=== PATIENT | female | born 1950 | race Caucasian/White ===

== ENCOUNTER 2023-04-14 16:49 | Emergency (ER) | payer SELFPAY ==
[2023-04-14 16:53] VITALS: BP 166/114
[2023-04-14 17:26] LABS: % Basophils 0.5 % (0-2); % Eosinophils 1.3 % (0-6); % Immature Granulocytes 0.5 % (0-0.5); % Lymphocytes 11.8 % (20.5-51.1); % Monocytes 7.4 % (1.7-9.3); % Neutrophils 78.5 % (42.2-75.2); Absolute Eosinophils 0.1 10^3/uL (0-0.7); Absolute Lymphocytes 0.8 10^3/uL (1.2-3.4); Absolute Monocytes 0.5 10^3/uL (0.1-0.6); Hematocrit 35.2 % (37.0-47.0); Hemoglobin 11.5 g/dL (12.0-16.0); Mean Corp Hgb Conc. 32.7 g/dL (33.0-37.0); Mean Corpuscular Hgb 24.4 pg (27.0-31.0); Mean Corpuscular Volume 74.7 fL (81.0-99.0); Mean Platelet Volume 9.6 fL (7.4-10.4); Nucleated Red Blood Cells % 0 %; Platelet Count 267 10^3/uL (130-400); Red Blood Cell Count 4.71 10^6/uL (4.20-5.40); Red Cell Dist. Width 14.1 % (11.5-14.5); White Blood Cell Count 6.4 10^3/uL (4.8-10.8)
[2023-04-14 17:54] LABS: ALT (SGPT) 65 U/L (0-35); AST (SGOT) 55 U/L (14-36); Albumin 4.4 g/dl (3.5-5.0); Alkaline Phosphatase 76 U/L (38-126); Blood Urea Nitrogen 19 mg/dl (7-17); Calcium 9.2 mg/dl (8.4-10.2); Carbon Dioxide 24 mmol/L (22-30); Chloride 106 mmol/L (98-107); Glucose 85 mg/dl (70-99); Potassium 3.8 mmol/L (3.5-5.1); Sodium 135 mmol/L (135-145); Total Bilirubin 0.5 mg/dl (0.2-1.3); Total Protein 6.7 g/dl (6.3-8.2); eGFR > 60.00
[2023-04-14 19:45] VITALS: BP 171/98
[2023-04-14 19:54] VITALS: BMI 19.0
[2023-04-14 20:00] VITALS: BP 168/96
--- NOTE | 2023-04-14 20:38 | ED.GENMED ---
History of Present Illness
General
Chief Complaint: Change in Mental Status
Source: patient
Exam Limitations: none
Time Seen by Provider: 04/14/23 20:10
Nursing documentation reviewed up to this point in time: agreed with
Travel History
Have you had any contact with someone who has COVID-19?: No
Do you have any symptoms of coronavirus? Fever > 100 degrees, chills, cough, shortness of breath, sore throat, loss of taste or smell, muscle aches, or headache?: No
History of Present Illness
History of Present Illness:
The patient is a 72-year-old female who reports that she feels confused. Patient reports that she always feels confused but worse in the last 2 days. She reports that she has owned [place] home [place] for 35 years and is now trying to sell
it because she is not able to afford taxes. She reports that her real estate lawyer is angry with her because she can get herself together to clean up the house. She reports that a man about 20 years younger than her knocked on her door promising
to help her with construction work, but instead has been living with her and not paying rent. She reports that the police are behind this man and they are all trying to scam her. The patient denies headache, fever and cough. She denies drugs and
alcohol. She reports that she may have missed her medication for the last 2 days. She denies suicidal and homicidal thoughts. The patient reports that he is not working in her home properly because she believes that this man cut holes in the
battery to her thermostat. She reports she is hungry because she is unable to get food easily.
Past History
Past History
ED Past Medical History: Fibromyalgia and Psychiatric
ED Past Surgical History: Orthopedic (Right wrist surgery) and Other (Right inguinal hernia repair)
Social History
Tobacco: Non-smoker
Alcohol: None
Drug: None
Personal: Single
Living: other (' Lives with a squatter')
Employment: Other
Family History
Family History: Other
Review of Systems
Review of Systems
Allergies reviewed?: Yes
All Other Systems: ROS reviewed and negative except as documented in HPI and ROS
Constitutional: Reports fatigue
EENT: Reports no symptoms
Respiratory: Reports no symptoms
Cardiac: Reports no symptoms
ABD/GI: Reports no symptoms
: Reports no symptoms
Musculoskeletal: Reports no symptoms
Skin: Reports no symptoms
Neurological: Reports no symptoms
Endocrine: Reports no symptoms
Hematologic/Lymphatic: Reports no symptoms
Psychiatric: Reports anxiety
Phy Exam
Physical Exam
Physical Exam:
Physical Exam
General: no apparent distress, frail. Gets agitated at times but then calms down. Frequently cursing
Neck: supple. no meningeal signs. normal psoterior pharynx
Heart: s1/s2 regular rate and rhythm, no murmur. equal radial pulses.
Lungs: no acute respiratory distress. clear bilaterally
Abdomen: normal bowel sounds. not tender. no CVAT
Neuro: alert and orientedx3. no focal neurological deficits
Skin: no rash
Psychiatric: well kept. interactive and cooperative
Extremities: no edema. no calf tenderness. negative homans. good distal pulses
Course
Orders/Labs/Results
Orders:
Orders
04/14/23 17:05
Alcohol Urgent
Complete Blood Count/With Diff Urgent
Comprehensive Metabolic Panel Urgent
04/14/23 19:31
ECG [Electrocardiogram (*1)] Urgent
Reason for Study: Hypertension, Benign
04/14/23 19:32
EKG- Treatment ONCE
04/14/23 20:37
Crisis Consult Urgent
Reason for Consult: pyscotic, disorganized, paranoid
04/14/23 20:43
Add On- LAB Urgent
Tests Added?: alcohol
04/14/23 20:50
COVID-19 Antigen Urgent
Source: Nasal Swab
Abnormal Lab Results
04/14/23
17:05
Hgb 11.5 L g/dL
(12.0-16.0)
Hct 35.2 L %
(37.0-47.0)
MCV 74.7 L fL
(81.0-99.0)
MCH 24.4 L pg
(27.0-31.0)
MCHC 32.7 L g/dL
(33.0-37.0)
Absolute Lymphs (auto) 0.8 L 10^3/uL
(1.2-3.4)
Neutrophils % 78.5 H %
(42.2-75.2)
Lymphocytes % 11.8 L %
(20.5-51.1)
BUN 19 H mg/dl
(7-17)
AST 55 H U/L
(14-36)
ALT 65 H U/L
(0-35)
04/14/23 17:05
04/14/23 17:05
Vital Signs
Initial and Last Documented VS:
Initial Vital Signs
Temp Pulse Resp BP Pulse Ox
99.1 F 98 16 166/114 100
04/14/23 16:53 04/14/23 16:53 04/14/23 16:53 04/14/23 16:53 04/14/23 16:53
Last Documented Vital Signs
Temp Pulse Resp BP Pulse Ox
99.1 F 93 12 165/100 97
04/14/23 16:53 04/14/23 23:30 04/14/23 23:30 04/14/23 22:00 04/14/23 23:30
MDM/Problems Addressed
Differential Diagnosis Includes:
Urinary tract infection, dehydration, acute psychosis
MDM/Problems Addressed:
Patient presents with acute on chronic confusion and paranoid thoughts
Chronic conditions affecting care: Psychiatric illness
Acute Exacerbation and/or Progression of Chronic Illness: HTN
*Pulse Oximetry
Patient hypoxic: no
*EKG
Interpreted by ED Provider?: Yes
Interpretation: abnormal
Comparison EKG: no changes
Rate: normal
Rhythm: sinus
[place]: normal axis
Interval: normal interval
QRS Pattern: left vent hypertrophy
Ischemia: no ischemia
*Racing Secretary And Handicapper Interpretation
Rate: Racing Secretary And Handicapper- N/A
*Critical Care Note
Total Time (30-74mins, 75-104mins- exclusive of procedures): Not Applicable
Data Reviewed
Review of Other/Old Records Reveals: Labs (Prior hemoglobin 10.1)
Source: patient
Patient Management
Discussion with other providers: Other (disc pad knockout worker)
Escalation/DeEscalation of care consider admission/obs:
There is no sign of significant dehydration or metabolic abnormality. Patient denies suicidal and homicidal thoughts. She reports she feels safe at home. Patient certainly displays paranoid behavior, however, I do not feel that this warrants a
302. disc pad knockout worker assures me that patient has outpatient therapy. Patient eating and drinking well in the ED and appears comfortable.
ED Attending Note
-
Portions of this chart may have been created with voice recognition software.� Occasional wrong word or��sound alike� substitutions may have occurred due to the inherent limitations of voice recognition software.
Discharge Plan
Departure
Patient Disposition: Home (Routine Discharge)
Date of Disposition: 04/14/23
Time of Disposition: 23:30
Patient with high blood pressure during this ER visit?: Yes
Condition: Good
Covid-19: Not Applicable
Discharge Problem:
Anxiety
Instructions: Anxiety, Adult ED, BLOOD PRESSURE
Prescriptions:
No Action
carisoprodol 350 mg tablet
700 mg PO BIDPRN PRN (Reason: muscle spasm)
celecoxib 200 mg capsule
200 mg PO DAILY
venlafaxine 75 mg capsule,extended release 24hr
75 mg PO QPM
tramadol 50 mg tablet
100 mg PO BIDPRN PRN (Reason: severe pain)
prednisolone acetate 1 % drops,suspension
1 drp ophthalmic (eye) UD
propranolol 80 mg capsule,extended release 24hr
80 mg PO QPM
qdvydypgsu-vdcqujr-kjlzkbse 50-325-40 mg capsule
2 cap PO Q4HPRN PRN (Reason: migraines)
gabapentin 300 mg capsule
300 mg PO BID
topiramate 50 mg tablet
50 mg PO BID
aripiprazole 2 mg tablet
2 mg PO DAILY
Referrals:
Herminio Cheema DO [Family Provider] -
Activity Restrictions/Additional Instructions:
Please follow-up with your therapist as scheduled. Return if you do not feel safe.
Interventions
Interventions:
*Risk Screen - Suicide Last Done: 04/14/23 16:53
*General Assessment Last Done: 04/14/23 16:53
*Neglect/Abuse Screening Last Done: 04/14/23 16:53
ED- Fall Risk Assessment Last Done: 04/14/23 19:54
*ED COVID-19 Vaccine History Last Done: 04/14/23 19:54
*Nursing Disposition Last Done: 04/15/23 00:09
ED- Neurological Assessment Last Done: 04/14/23 19:45
ED- Cardiac Assessment Last Done: 04/14/23 19:45
ED Swallowing Screen Last Done: 04/14/23 20:00
Discharge Date and Time
Discharge Date/Time: 04/15/23 00:11
[2023-04-14 21:00] VITALS: BP 182/102
[2023-04-14 21:15] LABS: COVID-19 Antigen Negative (Negative)
[2023-04-14 22:00] VITALS: BP 165/100
[2023-04-14 22:03] LABS: Alcohol None Detected
== END 2023-04-15 00:11 | disposition home or self-care (01) ==
LOC: EMR 16:49
PROVIDERS: Emergency Medicine; EMERGENCY PHYSICIAN Emergency Medicine; FAMILY PHYSICIAN Family Medicine
DX: F41.9 Anxiety disorder, unspecified (principal); I10 Essential (primary) hypertension; Z11.52 Encounter for screening for COVID-19
CPT/HCPCS: 99284; 80053; 82077; 85025; 87811; 93005

== ENCOUNTER 2023-06-10 14:05 | Observation (INO) | payer MEDICARE, OTHER, SELFPAY ==
[2023-06-10] VITALS (11 sets, daily range): BP systolic 146–179; BP diastolic 77–116; BMI 18.3
[2023-06-10 11:48] LABS: Glucose - Point of Care 136 mg/dl (70-99)
--- NOTE | 2023-06-10 11:49 | ED.GENMED ---
History of Present Illness
General
Chief Complaint: Change in Mental Status
Source: patient and ambulance crew
Exam Limitations: none
Time Seen by Provider: 06/10/23 11:48
Nursing documentation reviewed up to this point in time: agreed with
History of Present Illness
History of Present Illness:
73 yo female with history of HTN, anxiety/depression, PTSD, fibromyalgia, myofascial pain syndrome, peripheral neuropathy, osteoarthritis, memory problems, from home where she lives alone, EMS states she called them for fear that she couldn't get
the right words out 'trouble finding her words' per EMS. EMS state pt ambulated with steady gait from house out to ambulance, following commands appropriately just seemed to get her thoughts mixed up and couldn't articulate as well as usual. Pt
agrees with all this and states she has mixed up her medications a few times in the past and she thinks that is what she did this time 'I may have taken too many.' States she take all of her medications at night,
Has lengthy psychiatric history. She called [facility], where she is in therapy, spoke with Ivan Mcfadden, as she thought she took too many of her meds. and told to call EMS
Past History
Past History
ED Past Medical History: Fibromyalgia, HTN and Psychiatric (anxiety /depression)
ED Past Surgical History: Orthopedic (Right wrist surgery) and Other (Right inguinal hernia repair)
Social History
Tobacco: Non-smoker
Alcohol: None
Drug: None
Personal: Single
Living: alone (' Lives with a squatter')
Employment: Other
Family History
Family History: Other
Review of Systems
Review of Systems
Allergies reviewed?: Yes
All Other Systems: ROS reviewed and negative except as documented in HPI and ROS
Constitutional: Denies fever
Respiratory: Denies trouble breathing
Cardiac: Denies chest pain
ABD/GI: Denies abdominal pain, nausea, vomiting or diarrhea
: Denies dysuria, frequency, difficulty voiding or urgency
Musculoskeletal: Reports no symptoms
Skin: Reports no symptoms
Neurological: Reports other (trouble getting the right words out at times); Denies dizzy, headache or weakness
Psychiatric: Reports depression; Denies suicidal (but does say 'I'm sick of living')
Phy Exam
Physical Exam
Physical Exam:
GENERAL: No acute distress. A&Ox3.
CONSTITUTIONAL: Afebrile.
EYES: PERRL, conjunctivae normal
ENMT: moist mucus membranes, Pharynx nl
RESPIRATORY: Regular respirations, nonlabored, lungs clear.
CARDIOVASCULAR: Regular rate and rhythm, no murmurs, no rubs.
GI: Soft, nontender, normal BS
MUSCULOSKELETAL: Moves with ease. Well perfused.
SKIN: Warm, dry, pink
PSYCH: Depressed mood and affect. Well kept, interactive and appropriate
NEUROLOGIC: Awake, alert and oriented. Cranial nerves II through XII intact, patient does have trouble finding her words at times, speech is clear. Follows commands appropriately, vvsgmz-os-agqs intact, joyn-vc-jdio intact. Strength equal
throughout. No focal neurological deficits
Course
Orders/Labs/Results
Orders:
Orders
06/10/23 11:48
CT Head W/o Iv Contrast Urgent
Comment:
Reason For Exam: change in MS
06/10/23 11:49
Urinalysis Reflex To Culture Urgent
06/10/23 11:54
Complete Blood Count/With Diff Urgent
Comprehensive Metabolic Panel Urgent
06/10/23 13:46
Admit/Transfer Patient As Directed
Co-Sign Provider:
Level of Care: Observation services
Assign to:: Telemetry
Physician / Group: Antonio
Diagnosis: Expressive Aphasia
Reason for Telemetry: CVA/TIA
Date to Stop Telemetry: 06/13/23
Time to Stop Telemetry: 11:00
06/10/23 13:51
Code Status As Directed
Resuscitation Status: Full Code
06/10/23 13:54
Aspirin Chewable [Low Strength Aspirin] 324 mg PO NOW STA
06/10/23 14:02
Metoprolol [Lopressor] 5 mg IV NOW STA
06/10/23 15:34
Acetaminophen [Tylenol/Feverall] 650 mg RECTAL Q4HPRN PRN
Acetaminophen [Tylenol] 650 mg PO Q4HPRN PRN
06/10/23 15:34
Case Management Consult ONCE
Case Management Consult: Discharge Planning
Comment: stroke/tia
DIETARY CONSULT Routine
Reason for Consult: stroke/TIA
NEUROLOGY CONSULT Routine
Consulting Provider: Quinton Pate
Was physician already notified: Yes
PSYCHIATRY CONSULT Routine
Consulting Provider: Maribel Jones
Was physician already notified: Yes
Director Blood Bank Urgent
Activity As Directed
Activity Level: Out of Bed-Early Mobility
NIH Stroke Scale As Directed
Directions: Per protocol
Comment: every shift and with any change in condition or mental status
Neurological Checks As Directed
Frequency: q4h
Additional Instructions:: q4h x 24h upon admission to the floor, then qshift & with any change in condition
and mental status
Patient Education As Directed
Type: Stroke education packet
Comment: provide to patient and family
Pneumatic Compression Sleeves As Directed
Type: Knee high
Swallow Screening CVA/TIA ONLY As Directed
Comment: NPO until swallowing screening completed
If patient FAILS swallow screening:: NPO, Speech Therapy consult, Aspiration Precautions
If patient PASSES swallow screening, diet:: Cholesterol Lowering
Above diet order entered?: Yes- passed screening
Vital Signs As Directed
Frequency: Per unit guidelines
Ot Eval And Treat Routine
Pt Eval And Treat Routine
Activity Level: Out of Bed-Early Mobility
Speech Therapy Eval & Treat Routine
DX Deep Vein Thrombosis Video Routine
06/10/23 18:00
Atorvastatin [Lipitor] 40 mg PO QPM
Propranolol Extended Release [Inderal LA] 80 mg PO QPM
Venlafaxine Extended Release [Effexor Xr] 75 mg PO QPM
06/10/23 20:00
Topiramate [Topamax] 25 mg PO BID
06/10/23 22:00
Gabapentin [Neurontin] 600 mg PO HS
06/11/23 06:58
Basic Metabolic Panel IN AM
Cardiovascular Evaluation IN AM
Glycohemoglobin (HgbA1c) IN AM
Magnesium IN AM
TSH Reflex To Free T4 IN AM
06/11/23 08:00
Aspirin Chewable [Low Strength Aspirin] 81 mg PO DAILY
Clopidogrel Bisulfate [Plavix] 75 mg PO DAILY
Venlafaxine Extended Release [Effexor Xr] 150 mg PO DAILY
06/13/23 11:00
DC Protocol for Telemetry ONCE
Abnormal Lab Results
06/10/23 06/10/23
11:46 11:54
MCV 73.3 L fL
(81.0-99.0)
MCH 24.4 L pg
(27.0-31.0)
Absolute Lymphs (auto) 0.9 L 10^3/uL
(1.2-3.4)
Neutrophils % 78.3 H %
(42.2-75.2)
Lymphocytes % 13.6 L %
(20.5-51.1)
BUN 28 H mg/dl
(7-17)
Glucose 134 H mg/dl
(70-99)
Calcium 10.3 H mg/dl
(8.4-10.2)
AST 46 H U/L
(14-36)
POC Glucose 136 H mg/dl
(70-99)
06/10/23 11:54
06/10/23 11:54
Vital Signs
Initial and Last Documented VS:
Initial Vital Signs
Temp Pulse Resp BP Pulse Ox
97.8 F 99 16 159/95 100
06/10/23 11:46 06/10/23 11:46 06/10/23 11:46 06/10/23 11:46 06/10/23 11:46
Last Documented Vital Signs
Temp Pulse Resp BP Pulse Ox
98.3 F 77 16 137/89 99
06/11/23 07:45 06/11/23 07:45 06/11/23 07:45 06/11/23 07:45 06/11/23 07:45
MDM/Problems Addressed
Differential Diagnosis Includes:
CVA, dehydration, medication use error
MDM/Problems Addressed:
73 yo female with history of HTN, anxiety/depression, PTSD, fibromyalgia, myofascial pain syndrome, peripheral neuropathy, osteoarthritis, memory problems, from home where she lives alone, EMS states she called them for fear that she couldn't get
the right words out 'trouble finding her words' per EMS. EMS state pt ambulated with steady gait from house out to ambulance, following commands appropriately just seemed to get her thoughts mixed up and couldn't articulate as well as usual. Pt
agrees with all this and states she has mixed up her medications a few times in the past and she thinks that is what she did this time 'I may have taken too many.' States she take all of her medications at night,
Has lengthy psychiatric history. She called [facility], where she is in therapy, spoke with Ivan Mcfadden, as she thought she took too many of her meds. and told to call EMS
Case discussed with Dr. Rangel
Pt to CT scan
12:[address] report reviewed: No acute abnormality
CBC normal
Patient continues with intermittent expressive aphasia, her behavior is escalating, she is yelling out, crying, saying no one is listening to her, she wants to speak with her therapist Ivan Mcfadden, 'I need help,'
Crisis consult in
patient needs MRI, will admit to hospitalist for further evaluation.
Case discussed with Dr. Rangel who agrees with assessment and plan
1:[address] hospitalist MARGARITA han and to evaluate patient
.
*Critical Care Note
Total Time (30-74mins, 75-104mins- exclusive of procedures): Not Applicable
ED Attending Note
-
Portions of this chart may have been created with voice recognition software.� Occasional wrong word or��sound alike� substitutions may have occurred due to the inherent limitations of voice recognition software.
Discharge Plan
Departure
Patient Disposition: Admit
Date of Disposition: 06/10/23
Time of Disposition: 13:15
Admit to: Med/Surg
Presentation/result/management discussed w/ accepting MD/DO: Hospitalist
Condition: Fair
Discharge Problem:
Expressive aphasia
Interventions
Interventions:
*Risk Screen - Suicide Last Done: 06/10/23 19:32
*General Assessment Last Done: 06/10/23 11:46
*Neglect/Abuse Screening Last Done: 06/10/23 11:46
ED- Fall Risk Assessment Last Done: 06/10/23 11:46
*ED COVID-19 Vaccine History Last Done: 06/10/23 11:46
*Nursing Disposition Last Done: 06/10/23 15:25
ED- Neurological Assessment Last Done: 06/10/23 12:43
ED Swallowing Screen Last Done: 06/10/23 14:20
Discharge Date and Time
Discharge Date/Time: 06/10/23 15:27
[2023-06-10 12:10] LABS: % Basophils 0.5 % (0-2); % Eosinophils 1.1 % (0-6); % Immature Granulocytes 0.5 % (0-0.5); % Lymphocytes 13.6 % (20.5-51.1); % Neutrophils 78.3 % (42.2-75.2); Absolute Eosinophils 0.1 10^3/uL (0-0.7); Absolute Lymphocytes 0.9 10^3/uL (1.2-3.4); Absolute Monocytes 0.4 10^3/uL (0.1-0.6); Absolute Neutrophils 5.1 10^3/uL (1.4-6.5); Hematocrit 38.2 % (37.0-47.0); Hemoglobin 12.7 g/dL (12.0-16.0); Mean Corp Hgb Conc. 33.2 g/dL (33.0-37.0); Mean Corpuscular Hgb 24.4 pg (27.0-31.0); Mean Corpuscular Volume 73.3 fL (81.0-99.0); Mean Platelet Volume 9.7 fL (7.4-10.4); Nucleated Red Blood Cells % 0 %; Platelet Count 332 10^3/uL (130-400); Red Blood Cell Count 5.21 10^6/uL (4.20-5.40); Red Cell Dist. Width 13.8 % (11.5-14.5); White Blood Cell Count 6.5 10^3/uL (4.8-10.8)
--- NOTE | 2023-06-10 13:55 | HPS.HSE ---
Addendum entered and electronically signed by Gerald Alvarez MD 06/10/23 14:29:
I saw and examined the patient.
The WINDOWS ADMIN or PA's note was reviewed and I agree with the note.
Comment: 73-year-old female with past medical history of fibromyalgia, hypertension, anxiety, depression, PTSD, myofascial pain syndrome, peripheral neuropathy, arthritis, cognitive impairment came to the hospital with expressive aphasia. Patient
initially called her psychiatrist at [facility] and was instructed to come to the ED for evaluation. In the ER patient continued to be aphasic at times however it is intermittent. Per patient this has been going on for past couple days. She is
also not sure if she has mixed up her medications. Currently she denies any chest pain, shortness of breath. Denies any nausea, vomiting, diarrhea, constipation. Consult neuro, psychiatry. Give aspirin now. Lipid profile, A1c. Check MRI. CT
scan without any hemorrhage. Lopressor as needed. Mild hypercalcemia, start fluids
GENERAL: No acute distress. A&Ox3.
HEENT: anicteric,pink conjuctivae
RESPIRATORY: Regular respirations, nonlabored, lungs clear.
CARDIOVASCULAR: Regular rate and rhythm, no murmurs
GI: Soft, nontender, normal BS
MUSCULOSKELETAL: no edema
PSYCH: Depressed mood and affect. anxious at times
NEUROLOGIC: Awake, alert and oriented,expressive aphasia,no motor deficits
I spent a total of 77 minutes with the patient or on the floor. More than 50% of this time involved counseling and coordination of care.
Original Note:
Family Physician
-
Family Physician: * NONE
Chief Complaint
-
Speech Difficulty
History of Present Illness
Patient is a 73 y/o female past medical history of hypertension, anxiety, PTSD and fibromyalgia who presents with speech difficulty. Patient reports she started to notice word finding difficulty a few days ago. She describes not being able find
the right words, and sometimes she says the wrong word. She denies any focal numbness, tingling or weakness. She denies any prior history of stroke. She admits she takes of a lot of medication. She denies any recent changes in the medication,
but state she may have taken any extra pill, though isn't able to articulate which medication.
Medical History
Past Medical History
Past Medical History: Reports Other
Additional Past Medical History:
Essential Hypertension
Peripheral Neuropathy
Fibromyalgia / Myofascial Pain Syndrome
Anxiety / Depression / PTSD
Past Surgical History: Reports Other
Additional Past Surgical History:
Right Wrist Surgery
Right Inguinal Hernia Repair
Social History
Tobacco: Non-smoker
Alcohol: None
Living: Alone
Family History
Family History: Not pertinent
Allergies / Home Medications
Allergies reflects when Allergies were last updated in [employer].
Home Medications with original date entered in [employer]
Allergy/Medication List:
Allergies
Allergy/AdvReac Type Severity Reaction Status Date / Time
Sulfa (Sulfonamide Allergy Intermediate Rash Verified 09/30/22 15:34
Antibiotics)
tree and shrub pollen Allergy Intermediate Swelling Verified 09/30/22 15:34
bee stings Allergy Unknown Uncoded 09/30/22 15:34
spider bites Allergy Unknown Uncoded 09/30/22 15:34
Home Medications
qogqacsbhs-eyounsb-kgvhgsxc 50 mg-325 mg-40 mg capsule 2 cap PO Q4HPRN PRN migraines 09/30/22
gabapentin 300 mg capsule 600 mg PO HS 09/30/22
propranolol 80 mg capsule,24 hr,extended release 80 mg PO QPM 09/30/22
topiramate 50 mg tablet 50 mg PO BID 09/30/22
tramadol 50 mg tablet 100 mg PO BIDPRN PRN severe pain 09/30/22
venlafaxine 75 mg capsule,extended release 24 hr 75 mg PO QPM 09/30/22
Medical Mairjuana 2 - 3 puff inhalation DAILYPRN PRN anxiety 06/10/23
pregabalin 300 mg capsule (Lyrica) 300 mg PO DAILY 06/10/23
venlafaxine 150 mg tablet,extended release 24 hr 150 mg PO DAILY 06/10/23
Review of Systems
-
Unable to obtain full review of systems at this time due to: Acuity
A 12 point ROS was completed and negative except as noted: Yes
Physical Exam
Vital Signs
Vital Signs
Temp Pulse Resp BP Pulse Ox
97.8 F 105 16 168/92 98
06/10/23 11:46 06/10/23 13:25 06/10/23 13:25 06/10/23 12:00 06/10/23 13:25
Physical Exam
General: Well Developed and No Apparent Distress
HEENT: Anicteric and Moist mucous membranes
Respiratory: Clear and Non Labored Respirations
Cardiac: S1/S2 and Regular Rhythm; No Murmur
GI: Soft and Non Tender
Musculoskeletal: No Clubbing, No Cyanosis and No Edema
Skin: Warm and Dry
Neuro: Awake, Alert, No Motor Deficits and Other (Intermittent stuttering with some expressive aphasia ); No Facial Droop or Tremors
Laboratory Results
-
06/10/23 11:54
Impression/Plan
-
Expressive Aphasia, possible stroke vs medication vs psych related
-Consult Neurology and Psych
-Give full strength aspirin now, then start low dose aspirin and Plavix tomorrow
-Check HgbA1c and Lipid Panel
-Monitor neuro-checks
Essential Hypertension - Goal for normotension
-Continue proprandol
-Add Lopressor IV prn
Peripheral Neuropathy
Fibromyalgia / Myofascial Pain Syndrome
-Continue gabapentin
-Hold Lyrica
Anxiety / Depression / PTSD
-Continue Effexor and Topamax
DVT proph: SCDs
Code Status: Full Code
[2023-06-10 14:02] LABS: ALT (SGPT) 33 U/L (0-35); AST (SGOT) 46 U/L (14-36); Albumin 4.8 g/dl (3.5-5.0); Alkaline Phosphatase 83 U/L (38-126); Blood Urea Nitrogen 28 mg/dl (7-17); Calcium 10.3 mg/dl (8.4-10.2); Carbon Dioxide 27 mmol/L (22-30); Chloride 103 mmol/L (98-107); Estimated Creatinine Clearance 51 ml/min; Glucose 134 mg/dl (70-99); Potassium 4.5 mmol/L (3.5-5.1); Sodium 137 mmol/L (135-145); Total Bilirubin 0.5 mg/dl (0.2-1.3); Total Protein 7.3 g/dl (6.3-8.2); eGFR > 60.00
--- NOTE | 2023-06-10 14:04 | CON.NEURO4 ---
Addendum entered and electronically signed by Quinton Pate MD 06/10/23 15:16:
Studies reviewed.
I have personally examined the patient. I reviewed and agree with the EVENT PLANNING INTERN's Note.
My addenda:
Awake, alert, interactive. No acute distress.
Speech variable with stuttering and non-words. Patient changes topic and is re-directable.
Follows 2-step requests w/o difficulty. No tremor.
Extra-ocular movements grossly intact.
Facial movements full and symmetric. Hearing intact to normal conversational volume.
Normal UE movements bilaterally.
Neck: full ROM.
Chest: no dyspnea
Heart: no JVD
Ext: (-) Clubbing, (-) Cyanosis, (-) Edema
IMPRESSIONS/RECOMMENDATIONS:
Subacute onset of speech change
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
Supportive care
Neuropsychological evaluation and treatment as outpatient
Discontinue Gabapentin as same interacts at same receptor as Pregabalin
Replace [id number]-[id number] with Rizatriptan as needed
D/W patient / nursing
Will continue to follow pending results.
Original Note:
Documented by User: Ana Bruno NP 06/10/23 14:53
Consultation - Neurology 4
-
CONSULTING PHYSICIAN: Quinton Pate MD
REFERRING PHYSICIAN: Hospitalists/Brianna Rogers PA-C
DICTATED BY: AL Mann
DATE/TIME OF REQUEST: 06/10/23
DATE/TIME OF CONSULTATION: 06/07/23
Reason for Consultation: Speech difficulty
History of Present Illness:
This is a 73-year-old female who has presented to the hospital with report of speech difficulty. Patient cannot recall when her symptoms started but notes that at least more than one day ago she started having trouble 'finding her words.' Patient
reports that this has happened several times in the past but cannot provide more details. She also reports that she may have mixed up her medications and taken them incorrectly, which she has done in the past. CT head was obtained in the ER and is
negative for any acute abnormalities. She was loaded with aspirin in the ER. She reports several years of chronic neck and back pain, and dizziness. She denies any headache but is bothered by the bright lights in the room. She is unable to provide
answers to the remainder of review of systems questions. She has no history of stroke and is not taking any blood-thinning medications.
Past Medical History: HTN, PTSD, anxiety, depression, fibromyalgia, myofascial pain syndrome, peripheral neuropathy, osteoarthritis, memory issues
Surgical History: Right wrist surgery, right inguinal hernia repair.
Family History: Reviewed and noncontributory.
Social History: Denies tobacco, alcohol, and illicit drug use.
Allergies: Sulfa, tree and shrub pollen, bee stings, spider bites.
Home Medications: See below.
Review of Symptoms:
�Per the HPI.�All systems are reviewed negative except above.
Physical Exam:
The patient is afebrile, abdomen is nondistended, breathing is unlabored, skin is warm and dry, no edema.
NIH Stroke Scale:
I performed the NIH stroke scale on the patient on 06/10/23 at 1415. The patient scored 1 points on the NIH stroke scale assessment, which were assigned as follows: See below.
Neurologic Examination:
The patient is awake, alert and oriented to person and place, not month or year. She is able to follow commands and answer some questions appropriately. There is mild aphasia, this is inconsistent and seems more prominent when asked direct
questions. No dysarthria. On cranial nerve assessment, pupils are 3 mm bilateral, round and reactive to light and accommodation. Visual ramos are full. Extraocular movements are intact. Facial sensations are intact and bilaterally symmetrical,
there is no facial asymmetry. Hearing is intact bilaterally to normal conversation volume. Tongue palate and uvula are midline. Sternocleidomastoid strengths are full bilaterally. Motor strengths are 5/5 bilateral upper and lower extremities on
medical research [place] scale. There is no drift or involuntary movement noted. Deep tendon reflexes are 1+ bilateral upper and lower extremities and Babinski is absent bilaterally. Sensations of touch, temperature and vibration are intact and
bilaterally symmetrical. There was no extinction noted on double simultaneous stimulation. Coordination is intact by finger to nose bilaterally.
Lab Results: See below.
Neuro Imaging:
1. CT head 06/10/23: No acute intracranial abnormality. No interval change.
Differentials for the patient's presentation include:
1. Expressive aphasia; examination more supportive of polypharmacy and/or anxiety etiology but cannot entirely exclude stroke.
Patient has the following risk factors for their symptoms: Polypharmacy, anxiety, age, HTN
IV Tenecteplase/IAT candidacy: Not a candidate due to NIHSS 1, unclear diagnosis, outside of time window.
Recommendations:
-Will follow neurological test results.
-Loading dose of aspirin provided.
-Checking blood work for metabolic abnormalities. Lipid panel and hbA1c pending.
-Would discontinue gabapentin, patient should not be taking both Lyrica and Gabapentin.
-Neurological checks and NIHSS per unit guidelines.
-Provide patient with stroke education packet.
-Needs neuropsychological testing as an outpatient.
Discussed patient care with: Dr. Pate, the patient
Vital Signs and Labs
-
Vital Signs and Labs:
Vital Signs
Temp Pulse Resp BP Pulse Ox
97.8 F 105 16 163/102 98
06/10/23 11:46 06/10/23 14:26 06/10/23 13:25 06/10/23 14:26 06/10/23 13:25
Lab Results
06/10/23 11:54
06/10/23 11:54
Sodium 137 mmol/L (135-145) 06/10/23 11:54
Potassium 4.5 mmol/L (3.5-5.1) 06/10/23 11:54
BUN 28 mg/dl (7-17) H 06/10/23 11:54
Glucose 134 mg/dl (70-99) H 06/10/23 11:54
Calcium 10.3 mg/dl (8.4-10.2) H 06/10/23 11:54
Medications
-
Active Medications
Generic Name Dose Route Start Last Admin
Trade Name Freq PRN Reason Stop Dose Admin
Sodium Chloride 1,000 mls @ 100 mls/hr 06/10/23 14:30
Nss IV 06/11/23 00:29
.Q10H JULIOCESAR
Sodium Chloride 0 flush 06/10/23 15:00
Sodium Chloride 0.9% (Flush) Syringe IV 07/08/23 14:59
PER PROTOCOL JULIOCESAR
Home Medications
�Medication �Instructions �Recorded
xcatrntewe-buwvofx-tesrgcqc 50 2 cap PO Q4HPRN PRN migraines 09/30/22
mg-325 mg-40 mg capsule
gabapentin 300 mg capsule 600 mg PO HS 09/30/22
propranolol 80 mg capsule,24 80 mg PO QPM 09/30/22
hr,extended release
topiramate 50 mg tablet 50 mg PO BID 09/30/22
tramadol 50 mg tablet 100 mg PO BIDPRN PRN severe pain 09/30/22
venlafaxine 75 mg capsule,extended 75 mg PO QPM 09/30/22
release 24 hr
Medical Mairjuana 2 - 3 puff inhalation DAILYPRN PRN 06/10/23
anxiety
pregabalin 300 mg capsule (Lyrica) 300 mg PO DAILY 06/10/23
venlafaxine 150 mg tablet,extended 150 mg PO DAILY 06/10/23
release 24 hr
NIH Stroke Score
Subsequent NIH Scale
Date of Subsequent NIH Scale: 06/10/23
Time of Subsequent NIH Scale: 14:15
NIH Stroke Score
Level of Consciousness: 0 - Alert
LOC Questions: 0-Answers both correctly
LOC Commands: 0-Performs both correctly
Best Horizontal Gaze: 0-Normal
Visual Ramos: 0=Normal, no visual loss
Facial Palsy: 0=Normal, symmetrical
Motor - Right Arm: 0=No drift 10 seconds
Motor - Left Arm: 0=No drift 10 seconds
Motor - Right Le-No drift 5 seconds
Motor - Left Le-No drift 5 seconds
Limb Ataxia: 0-Absent
Sensation: 0-Normal
Best Language: 1-Mild aphasia
Dysarthria: 0-Normal
Extinction and Inattention: 0-No abnormality
Total Score:: 1

Documented by User: Quinton Pate MD 06/10/23 15:06
NIH Stroke Score
NIH Stroke Score
Total Score:: 1
--- NOTE | 2023-06-10 14:15 | W.PN.UPDATE ---
Update Note
Progress Note Update
I saw and examined the patient.
The COLOR STRAINING BAG WASHER or PA's note was reviewed and I agree with the note.
Comment: 73-year-old female with past medical history of fibromyalgia, hypertension, anxiety, depression, PTSD, myofascial pain syndrome, peripheral neuropathy, arthritis, cognitive impairment came to the hospital with expressive aphasia. Patient
initially called her psychiatrist at [facility] and was instructed to come to the ED for evaluation. In the ER patient continued to be aphasic at times however it is intermittent. Per patient this has been going on for past couple days. She is
also not sure if she has mixed up her medications. Currently she denies any chest pain, shortness of breath. Denies any nausea, vomiting, diarrhea, constipation. Consult neuro, psychiatry. Give aspirin now. Lipid profile, A1c. Check MRI. CT
scan without any hemorrhage. Lopressor as needed. Mild hypercalcemia, start fluids
GENERAL: No acute distress. A&Ox3.
HEENT: anicteric,pink conjuctivae
RESPIRATORY: Regular respirations, nonlabored, lungs clear.
CARDIOVASCULAR: Regular rate and rhythm, no murmurs
GI: Soft, nontender, normal BS
MUSCULOSKELETAL: no edema
PSYCH: Depressed mood and affect. anxious at times
NEUROLOGIC: Awake, alert and oriented,expressive aphasia,no motor deficits
I spent a total of 77 minutes with the patient or on the floor. More than 50% of this time involved counseling and coordination of care.
[2023-06-10] MEDS: LOW STRENGTH ASPIRIN 324 MG PO (14:23)
[2023-06-10] MEDS: LOPRESSOR 5 MG IV ×2 (14:26→20:29)
[2023-06-10] MEDS: NSS 1000 IV (14:42)
--- NOTE | 2023-06-10 16:10 | PTOTSP ---
Speech Language Pathology
Pt seen for speech/language evaluations. No dysarthria noted with adequate diadochokinetic (DDK) rates. Pt with inconsistent language performance as noted by other practitioners this date. Evaluated via the Quick Aphasia Battery (QAB), form 1.
Pt with overall score of 6.37, indicating overall mod deficits. Pt with the following scores (severities) on the following subtests: word comprehension= 10.00 (WNL), sentence comprehension= 5.42 (mod), word finding= 3.00 (severe), grammatical
construction= 5.13 (mod), speech motor programming= 10.00 (WNL), repetition= 7.92 (mild), reading= 7.50 (mild).
Pt also seen for clinical bedside swallow evaluation. P.O. trials of puree, regular solids, and thin liquids provided. Slighty prolonged mastication with solids secondary to dentition, but this was functional given additional time. Pt with
adequate bolus formation and A-P transit noted with no oral residue. No overt signs of aspiration.
Recommend:
(1) Regular solids/thin liquids
(2) General aspiration precautions
(3) Meds as tolerated
(4) TECHNICAL SALES DIRECTOR to continue to follow
[2023-06-10] MEDS: EFFEXOR XR 75 MG PO (17:24)
[2023-06-10] MEDS: LIPITOR 40 MG PO (17:24)
[2023-06-10] MEDS: INDERAL LA 80 MG PO (17:24)
[2023-06-10] MEDS: TOPAMAX 25 MG PO (20:29)
--- NOTE | 2023-06-10 20:48 | PTCARENOTE ---
Dayshift and nightshift RN at bedside for hand-off report. Patient stated that she 'wanted to ' and was reaching out to her therapist. RN did suicide scale, which did not prompt a one-to-one sitter. Patient stated that she did not have a plan,
and that she was not currently suicidal. Eileen Madera and nursing paint line supervisor Chuck made aware. Per ANCHOR TACKER and paint line supervisor, she does not need a one-to-one. Bed alarm on and med-sitter on patient.
[2023-06-10] MEDS: NEURONTIN 600 MG PO (21:47)
--- NOTE | 2023-06-10 23:37 | PTCARENOTE ---
Manual BP 165/90. PRN Lopressor given at 2030. MANAGER BACKGROUND Eileen made aware, no new orders per MANAGER BACKGROUND.
[2023-06-11] VITALS (9 sets, daily range): BP systolic 135–177; BP diastolic 75–96; PULSE 73–77; O2SAT 94–100; BMI 18.3
[2023-06-11] MEDS: TUMS 1 TABLET PO (04:33)
--- NOTE | 2023-06-11 07:05 | W.PN.NEURO.1 ---
Today's Communication / Plan
-
-Can stop antiplatelets and NIH checks
-Agree with lowering the dose of topiramate to 25 mg twice daily from her previously higher dose
-Would be on only 1 nerve pain agent continue gabapentin at home dose
-Would focus on speech therapy, discussed the diagnosis of functional neurologic disorder which can improve with time and speech therapy
-Would have neurology follow-up as an outpatient nonurgently for 8 weeks
-No barriers to discharge from my standpoint
Neuro Assessment/Plan
Assessment
73-year-old woman with a past medical history of headaches, anxiety and depression, fibromyalgia, hypertension presented to hospital because of speech difficulties.
Patient unable to exactly when this started but thinks it is somewhat worse than normal, does detail that it has been a problem in the past at some point but not entirely clear on the specifics of this. Patient reports that the speech can become
abnormal when she is stressed or thinking about family members who she has not gotten along with. Notes no dysphagia. She says that she has a history of several neuro immunologic disorders.
Says that she had been on both gabapentin and Lyrica in the past but more recently only able to afford gabapentin she says it was on these medications for history of fibromyalgia.
MRI of the brain shows mild to moderate microvascular ischemic disease in the hemispheres of the brain in the white matter bilaterally and no acute or chronic infarct, brain MRI is not at all consistent with demyelinating disease or multiple
sclerosis. MRA shows some mild compression of the brainstem by vertebral artery which I feel is completely asymptomatic.
Patient most likely has a partly a functional neurologic disorder manifesting with speech abnormality which I discussed with her. Possibility that topiramate may also be playing a role.
Subjective/Objective
Subjective Data
Date of Service: June 11, 2023
No acute events, patient feels like speech is a bit better but still not normal, gets worse with stress and when thinking of family members who she does not get along, she isn't sure how long the speech has been significantly abnormal but notes this
has been a problem in the past.
Objective Data
Vital Signs
Temp Pulse Resp BP Pulse Ox
98.3 F 74 18 164/89 98
06/11/23 03:30 06/11/23 03:30 06/11/23 03:30 06/11/23 03:30 06/11/23 03:30
Lab Results
06/10/23 11:54
Sodium 137 mmol/L (135-145) 06/10/23 11:54
Potassium 4.5 mmol/L (3.5-5.1) 06/10/23 11:54
BUN 28 mg/dl (7-17) H 06/10/23 11:54
Glucose 134 mg/dl (70-99) H 06/10/23 11:54
Calcium 10.3 mg/dl (8.4-10.2) H 06/10/23 11:54
Patient Allergies
Sulfa (Sulfonamide Antibiotics) Allergy (Intermediate, Verified 09/30/22 15:34)
Rash
tree and shrub pollen Allergy (Intermediate, Verified 09/30/22 15:34)
Swelling
bee stings Allergy (Uncoded 09/30/22 15:34)
Unknown
spider bites Allergy (Uncoded 09/30/22 15:34)
Unknown
Review of Systems
-
History Source: Patient
All other systems: Reviewed and negative
Constitutional: No Symptoms
EENT: No Symptoms Reported
Respiratory: No Symptoms
Cardiac: No Symptoms
Abdomen/GI: No Symptoms
Genitourinary: No Symptoms
Musculoskeletal: No Symptoms
Skin: No Symptoms
Neuro: Speech Problem
Endocrine: No Symptoms
Hematologic / Lymphatic: No Symptoms
Allergy / Immunology: No Symptoms
Physical Exam
-
General: Comfortable
Eyes: No Ptosis
HEENT: Normocephalic
Neck: No Bruits Bilaterally
Respiratory: Clear to Auscultation
Cardiac: Regular Rhythm
GI: Normal Bowel Sounds
Skin: Unremarkable
Extremities: No Clubbing
Psych: Anxious
Extended Neurological Exam
Mood & Affect: Mood Unremarkable
Attention Span & Concentration: Awake, Alert, Interactive and No Difficulty with 2 Step Request
Memory: Unremarkable
Tremor: Hand Tremor Absent
Involuntary Movement: None
Speech: Other (Fluent speech in recalling history, rare pauses in speech, names objects well and consistently, obeys commands consistently)
Cranial Nerve II: Left Eye: Pupillary Reactivity Unremarkable, Pupillary Size Unremarkable and Visual Ramos Intact
Cranial Nerve II: Right Eye: Pupillary Reactivity Unremarkable, Pupillary Size Unremarkable and Visual Ramos Intact
Cranial Nerves III, IV, : Extraocular Movement: Extraocular Movement Full in all Directions
Cranial Nerve V: Facial Sensation: Intact to Light Touch
Cranial Nerve VII: Facial Symmetry: Normal Facial Symmetry
Cranial Nerve XII: Tongue Protusion: Midline
Muscle Strength, Overall: Full Throughout
Muscle Bulk & Tone: Bulk Unremarkable
Pronator Drift: No Drift in Upper Extremities
Vibration Sensation: Unremarkable
Touch Sensation: Unremarkable
Coordination: Cmmvwe-tmnw-hxnkec Testing Unremarkable
Babinski Sign: Absent Bilaterally
Data Reviewed
-
MRI Head: Report Reviewed and Image Reviewed
MRA Head: Report Reviewed and Image Reviewed
MRA Neck: Report Reviewed and Image Reviewed
Labs: Report Reviewed
[2023-06-11 08:44] LABS: Glycohemoglobin (HgbA1c) 5.6 % (4.0-5.6)
[2023-06-11] MEDS: PLAVIX 75 MG PO (08:53)
[2023-06-11] MEDS: TOPAMAX 25 MG PO ×2 (08:54→21:11)
[2023-06-11] MEDS: LOW STRENGTH ASPIRIN 81 MG PO (08:54)
[2023-06-11] MEDS: EFFEXOR XR 150 MG PO (08:54)
[2023-06-11 09:07] LABS: Blood Urea Nitrogen 25 mg/dl (7-17); Calcium 9.4 mg/dl (8.4-10.2); Carbon Dioxide 24 mmol/L (22-30); Chloride 106 mmol/L (98-107); Estimated Creatinine Clearance 56 ml/min; Glucose 93 mg/dl (70-99); HDL Cholesterol 86 mg/dl; LDL Cholesterol, Calculated 136 mg/dl; Magnesium 2.5 mg/dl (1.6-2.3); Potassium 3.8 mmol/L (3.5-5.1); Sodium 135 mmol/L (135-145); Total Cholesterol 240 mg/dl (50-199); Triglyceride 93 mg/dl (10-149); Very Low Density Lipoprotein 18 mg/dl (0-30); eGFR > 60.00
[2023-06-11 10:50] LABS: TSH Reflex To Free T4 1.33 uIU/ml (0.47-4.68)
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
--- NOTE | 2023-06-11 11:46 | W.PN.HOSP.TC ---
Today's Communication/Plan
-
Monitor vital signs see plan
Continue aspirin Plavix
MRI
PT/OT
Neurology and psychiatry to see today
add Amlodipine
Assessment / Plan
Assessment / Plan
GENERAL: No acute distress. A&Ox3.
HEENT: anicteric,pink conjuctivae
RESPIRATORY: Regular respirations, nonlabored, lungs clear.
CARDIOVASCULAR: Regular rate and rhythm, no murmurs
GI: Soft, nontender, normal BS
MUSCULOSKELETAL: no edema
PSYCH: Depressed mood and affect. anxious at times
NEUROLOGIC: Awake, alert and oriented,expressive aphasia,no motor deficits
Expressive Aphasia, possible stroke vs medication vs psych related
-Consulted Neurology and Psych
-cw ASA and plavix
MRI pending
-a1c 5.6
-Monitor neuro-checks
Essential Hypertension - Goal for normotension
-Continue proprandol
start amlodipine
-Add Lopressor IV prn
Peripheral Neuropathy
Fibromyalgia / Myofascial Pain Syndrome
-Continue gabapentin
-Hold Lyrica
Anxiety / Depression / PTSD
-Continue Effexor and Topamax
DVT proph: SCDs
Code Status: Full Code
Anticipated Discharge: Within 24 hours
Subjective/Interval History
-
Date of Service: June 11, 2023
denies pain
Objective Data
-
Labs:
Laboratory Results
06/11/23
06:58
Sodium 135
Potassium 3.8
Chloride 106
Carbon Dioxide 24
BUN 25 H
Creatinine 0.7
Glucose 93
Calcium 9.4
Vital Signs:
Vital Signs
Temp Pulse Resp BP Pulse Ox
98.4 F 76 20 177/96 100
06/11/23 11:29 06/11/23 11:29 06/11/23 11:29 06/11/23 11:29 06/11/23 11:29
I&O
06/10/23 06/11/23 06/12/23
06:59 06:59 06:59
Intake Total 480 / 480
Balance 480 / 480
[2023-06-11] MEDS: NORVASC 5 MG PO (12:35)
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
[2023-06-11] MEDS: INDERAL LA 80 MG PO (17:30)
[2023-06-11] MEDS: LIPITOR 40 MG PO (17:30)
[2023-06-11] MEDS: EFFEXOR XR 75 MG PO (17:30)
[2023-06-11 20:31] LABS: Hepatitis C Antibody Negative (Negative)
[2023-06-11] MEDS: NEURONTIN 600 MG PO (21:11)
[2023-06-12 03:15] VITALS: BP 159/82
[2023-06-12 08:00] VITALS: BP 133/73
[2023-06-12] MEDS: NORVASC 5 MG PO (08:55)
[2023-06-12] MEDS: EFFEXOR XR 150 MG PO (08:55)
[2023-06-12] MEDS: TOPAMAX 25 MG PO ×2 (08:55→20:37)
--- NOTE | 2023-06-12 11:54 | W.PN.HOSP.TC ---
Today's Communication/Plan
-
monitor vitals
see plan
dispo pending conversation with POA; patient does not want SNF
cw psych meds
Assessment / Plan
Assessment / Plan
GENERAL: No acute distress. A&Ox3.
HEENT: anicteric,pink conjuctivae
RESPIRATORY: Regular respirations, nonlabored, lungs clear.
CARDIOVASCULAR: Regular rate and rhythm, no murmurs
GI: Soft, nontender, normal BS
MUSCULOSKELETAL: no edema
PSYCH: Depressed mood and affect. anxious at times
NEUROLOGIC: Awake, alert and oriented,no motor deficits
Expressive Aphasia likely was 2/2 medication related and anxiety
-Consulted Neurology and Psych
-dc'ed ASA and plavix
MRI noted; no new cva
-a1c 5.6
-Monitor neuro-checks
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 MRA shows some
mild compression of the brainstem by vertebral artery however patient is assymptomatic. Per neurology patient can be discharged
Evaluated by psych and instructed to follow-up with them outpatient
Essential Hypertension - Goal for normotension
-Continue proprandol
added amlodipine
-Add Lopressor IV prn
Peripheral Neuropathy
Fibromyalgia / Myofascial Pain Syndrome
-Continue gabapentin
-Hold Lyrica
Anxiety / Depression / PTSD
-Continue Effexor and Topamax
DVT proph: SCDs
Code Status: Full Code
PT/OT rec SNF; patient refusing however does have a POA; asked CM for assistance
Anticipated Discharge: Today
Subjective/Interval History
-
Date of Service: June 12, 2023
denies pain
Objective Data
-
Vital Signs:
Vital Signs
Temp Pulse Resp BP Pulse Ox
97.7 F 69 20 133/73 99
06/12/23 08:00 06/12/23 08:00 06/12/23 08:00 06/12/23 08:00 06/12/23 08:00
I&O
06/11/23 06/12/23 06/13/23
06:59 06:59 06:59
Intake Total 1440 / 1440
Balance 1440 / 1440
[2023-06-12 12:00] VITALS: BP 130/74
--- NOTE | 2023-06-12 12:22 | CM ---
Long conversation with patient, she does not feel she needs skilled rehab.
Patient was ambulating in the rivas with RW and nurse this am.
Left VM for patient's emergency guardian Kenneth Michele [phone], await TCB.
[phone]
Patient wants to go home.
Yesterday, PT/OT recommending skilled rehab.
Plan: to be determined.
[2023-06-12] MEDS: INDERAL LA 80 MG PO (17:13)
[2023-06-12] MEDS: LIPITOR PO (17:16)
[2023-06-12] MEDS: EFFEXOR XR 75 MG PO (17:16)
[2023-06-12 19:08] VITALS: BP 110/61
[2023-06-12] MEDS: NEURONTIN 600 MG PO (20:37)
[2023-06-12] MEDS: COMPAZINE 10 MG IV (22:53)
[2023-06-12 23:20] VITALS: BP 138/72
[2023-06-13 03:06] VITALS: BP 143/73
[2023-06-13 07:45] VITALS: BP 142/70
[2023-06-13] MEDS: NORVASC 5 MG PO (09:01)
[2023-06-13] MEDS: EFFEXOR XR 150 MG PO (09:01)
[2023-06-13] MEDS: TOPAMAX 25 MG PO ×2 (09:02→20:20)
--- NOTE | 2023-06-13 11:03 | CM ---
Addendum entered by Aaliyah Garcia 06/13/23 16:23:
manager universal received a call from the Emergency guardian who states that he feels patient needs to be in a controlled setting where her medications are monitored and patient is supervised, patient will not qualify for placement through skilled
however will need to contact the [facility] to review placement options.
Original Note:
manager universal reviewed patient's chart and met with patient this morning patient would like to return to home and telephonic case manager along with physician have reached out to patient's emergency guardian to confirm discharge plan.
Plan; Awaiting contact from emergency guardian regarding placement for patient.
[2023-06-13 11:07] VITALS: BP 133/64
--- NOTE | 2023-06-13 12:28 | W.PN.HOSP.TC ---
Today's Communication/Plan
-
Monitor vitals
see plan
Dispo planning, awaiting response from guardian
cw meds
Assessment / Plan
Assessment / Plan
GENERAL: No acute distress. A&Ox3.
HEENT: anicteric,pink conjuctivae
RESPIRATORY: Regular respirations, nonlabored, lungs clear.
CARDIOVASCULAR: Regular rate and rhythm, no murmurs
GI: Soft, nontender, normal BS
MUSCULOSKELETAL: no edema
PSYCH: Depressed mood and affect. anxious at times
NEUROLOGIC: Awake, alert and oriented,no motor deficits
Expressive Aphasia likely was 2/2 medication related and anxiety
-Consulted Neurology and Psych
-dc'ed ASA and plavix
MRI noted; no new cva
-a1c 5.6
-Monitor neuro-checks
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 MRA shows some
mild compression of the brainstem by vertebral artery however patient is assymptomatic. Per neurology patient can be discharged
Evaluated by psych and instructed to follow-up with them outpatient
Essential Hypertension - Goal for normotension
-Continue proprandol
added amlodipine
-Add Lopressor IV prn
Peripheral Neuropathy
Fibromyalgia / Myofascial Pain Syndrome
-Continue gabapentin
-Hold Lyrica
Anxiety / Depression / PTSD
-Continue Effexor and Topamax
DVT proph: SCDs
Code Status: Full Code
PT/OT rec SNF; patient refusing however does have a POA; asked CM for assistance. awaiting answer from guardian. Me and senior payroll manager both called.
Anticipated Discharge: Within 24 hours
Subjective/Interval History
-
Date of Service: June 13, 2023
denies pain
Objective Data
-
Vital Signs:
Vital Signs
Temp Pulse Resp BP Pulse Ox
98.4 F 69 16 133/64 99
06/13/23 11:07 06/13/23 11:07 06/13/23 11:07 06/13/23 11:07 06/13/23 11:07
I&O
06/12/23 06/13/23 06/14/23
06:59 06:59 06:59
Intake Total 1440 / 1440
Balance 1440 / 1440
[2023-06-13 14:47] VITALS: BP 125/90; PULSE 88; O2SAT 92
[2023-06-13 15:40] VITALS: BP 146/87
[2023-06-13] MEDS: INDERAL LA 80 MG PO (17:46)
[2023-06-13] MEDS: LIPITOR 40 MG PO (17:46)
[2023-06-13] MEDS: EFFEXOR XR 75 MG PO (17:46)
[2023-06-13] MEDS: NEURONTIN 600 MG PO (20:20)
[2023-06-13 23:35] VITALS: BP 123/67
[2023-06-14 07:40] VITALS: BP 118/73
[2023-06-14] MEDS: NORVASC 5 MG PO (10:59)
[2023-06-14] MEDS: EFFEXOR XR 150 MG PO (10:59)
[2023-06-14] MEDS: TOPAMAX 25 MG PO ×2 (10:59→20:39)
--- NOTE | 2023-06-14 12:20 | W.PN.HOSP.TC ---
Today's Communication/Plan
-
Monitor vital signs and see plan
Dispo planning, spoke with counseling case manager and it appears guardian still wants retirement placement
Assessment / Plan
Assessment / Plan
GENERAL: No acute distress. A&Ox3.
HEENT: anicteric,pink conjuctivae
RESPIRATORY: Regular respirations, nonlabored, lungs clear.
CARDIOVASCULAR: Regular rate and rhythm, no murmurs
GI: Soft, nontender, normal BS
MUSCULOSKELETAL: no edema
PSYCH: Depressed mood and affect. anxious at times
NEUROLOGIC: Awake, alert and oriented,no motor deficits
Expressive Aphasia likely was 2/2 medication related and anxiety
-Consulted Neurology and Psych
-dc'ed ASA and plavix
MRI noted; no new cva
-a1c 5.6
-Monitor neuro-checks
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 MRA shows some
mild compression of the brainstem by vertebral artery however patient is assymptomatic. Per neurology patient can be discharged
Evaluated by psych and instructed to follow-up with them outpatient
Essential Hypertension - Goal for normotension
-Continue proprandol
added amlodipine
-Add Lopressor IV prn
Peripheral Neuropathy
Fibromyalgia / Myofascial Pain Syndrome
-Continue gabapentin
-Hold Lyrica
Anxiety / Depression / PTSD
-Continue Effexor and Topamax
DVT proph: SCDs
Code Status: Full Code
PT/OT now recommending home health however guardian wants nursing facility; patient wants to go home; asked CM for assistance. awaiting answer from guardian. Me and manager bar both called.
Anticipated Discharge: Within 24 hours
Subjective/Interval History
-
Date of Service: June 14, 2023
denies pain
Objective Data
-
Vital Signs:
Vital Signs
Temp Pulse Resp BP Pulse Ox
99 F 71 16 118/73 100
06/14/23 07:40 06/14/23 07:40 06/14/23 07:40 06/14/23 07:40 06/14/23 07:40
I&O
06/13/23 06/14/23 06/15/23
06:59 06:59 06:59
Intake Total 1380 / 1380
Balance 1380 / 1380
[2023-06-14] MEDS: INDERAL LA 80 MG PO (19:27)
[2023-06-14] MEDS: EFFEXOR XR 75 MG PO (19:28)
[2023-06-14] MEDS: LIPITOR PO (19:28)
[2023-06-14] MEDS: NEURONTIN 600 MG PO (20:44)
[2023-06-14 23:18] VITALS: BP 124/74
[2023-06-15 07:40] VITALS: BP 109/89
[2023-06-15] MEDS: NORVASC 5 MG PO (08:39)
[2023-06-15] MEDS: EFFEXOR XR 150 MG PO (08:40)
[2023-06-15] MEDS: TOPAMAX 25 MG PO ×2 (08:40→21:00)
--- NOTE | 2023-06-15 09:45 | CM ---
Addendum entered by Aaliyah Garcia 06/15/23 17:06:
Emergency guardian, Kenneth Bautista came to hospital to meet with patient today, plan to to attempt to set up services/caregivers in home. receivable manager reached out to Ashley case monitor at [facility] [phone] to review but no answer.
Addendum entered by Aaliyah Garcia 06/15/23 10:59:
calls placed again to [facility] and Kenneth Bautista still no answer.
Original Note:
Chart reviewed and patient wants to leave, psychiatry signed off, Patient is ambulating 250 feet with physical therapy and physical therapy are recommending home health, message left for Edgar [phone] [facility], along with tiger
text no answer, message left for emergency guardian Kenneth Bautista [phone] awaiting return call.
Plan; Waiting on return calls from Edgar [facility] on [facility] who initiated emergency guardianship and Kenneth Bautista emergency guardian for patient.
--- NOTE | 2023-06-15 10:45 | PTCARENOTE ---
Pt out to nurses station stating 'I want to call the police, because I'm being held against my will'. Asked pt to return to room, pt cooperative and returned to room. Case management aware, noting calls placed to [facility]
and Kenneth Bautista with no answer. Pt made aware, willing to wait for case management to get return call.
--- NOTE | 2023-06-15 12:22 | W.PN.HOSP.TC ---
Today's Communication/Plan
-
Monitor vital signs and see plan
Ongoing disposition
Lidocaine cream, ibuprofen
Assessment / Plan
Assessment / Plan
GENERAL: No acute distress. A&Ox3.
HEENT: anicteric,pink conjuctivae
RESPIRATORY: Regular respirations, nonlabored, lungs clear.
CARDIOVASCULAR: Regular rate and rhythm, no murmurs
GI: Soft, nontender, normal BS
MUSCULOSKELETAL: no edema
PSYCH: Depressed mood and affect. anxious at times
NEUROLOGIC: Awake, alert and oriented,no motor deficits
Expressive Aphasia likely was 2/2 medication related and anxiety
-Consulted Neurology and Psych
-dc'ed ASA and plavix
MRI noted; no new cva
-a1c 5.6
-Monitor neuro-checks
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 MRA shows some
mild compression of the brainstem by vertebral artery however patient is assymptomatic. Per neurology patient can be discharged
Evaluated by psych and instructed to follow-up with them outpatient
Essential Hypertension - Goal for normotension
-Continue proprandol
added amlodipine
Peripheral Neuropathy
Fibromyalgia / Myofascial Pain Syndrome
-Continue gabapentin
-Hold Lyrica
Knee pain secondary to arthritis
Pain control
Anxiety / Depression / PTSD
-Continue Effexor and Topamax
DVT proph: SCDs
Code Status: Full Code
PT/OT now recommending home health however guardian wants nursing facility; patient wants to go home; continuous pillowcase cutter assisting with disposition. [employer] getting involved
Anticipated Discharge: Within 24 hours
Subjective/Interval History
-
Date of Service: June 15, 2023
has some knee pain
Objective Data
-
Vital Signs:
Vital Signs
Temp Pulse Resp BP Pulse Ox
98.4 F 77 16 109/89 99
06/15/23 07:40 06/15/23 07:40 06/15/23 07:40 06/15/23 07:40 06/15/23 07:40
I&O
06/14/23 06/15/23 06/16/23
06:59 06:59 06:59
Intake Total 1380 / 1380 1080 / 1080
Balance 1380 / 1380 1080 / 1080
[2023-06-15] MEDS: LMX 4 1 APPLIC TOPICAL (12:46)
[2023-06-15] MEDS: MOTRIN 200 MG PO (12:50)
--- NOTE | 2023-06-15 14:37 | PTCARENOTE ---
Pt walked to 4E, crying and yelling at staff. Very upset thinking her 'guardian is in a secret meeting with case management', 'trying to keep her in the hospital against her will'. Redirected back to room, supportive care given.
[2023-06-15 15:55] VITALS: BP 146/78
[2023-06-15 16:10] VITALS: BP 146/78; PULSE 81
[2023-06-15] MEDS: LIPITOR PO (17:54)
[2023-06-15] MEDS: INDERAL LA 80 MG PO (17:55)
[2023-06-15] MEDS: EFFEXOR XR 75 MG PO (18:00)
[2023-06-15] MEDS: NEURONTIN 600 MG PO (21:00)
[2023-06-15 23:22] VITALS: BP 134/68
[2023-06-15] MEDS: ULTRAM 100 MG PO (23:46)
[2023-06-16 07:45] VITALS: BP 129/60
[2023-06-16] MEDS: EFFEXOR XR 150 MG PO (08:00)
[2023-06-16] MEDS: TOPAMAX 25 MG PO (08:00)
[2023-06-16] MEDS: NORVASC 5 MG PO (08:00)
--- NOTE | 2023-06-16 09:16 | CM ---
TC from Kenneth Bautista [facility]. legal guardian for Sonali.
Kenneth's phone # [phone] (he will be unavailable between 10-11 am today and 2-3 pm today but leave a message and he will call back.)
He spoke with Edgar from [facility] and they are agreeable to home with services.
Kenneth requested a hard script for home health services be faxed to him at [phone] and he will forward to Edgar to see what services [facility] can offer.
will also set up VN for d/c.
Kenneth requested pharmacy of choice be switched to [facility] in [place] and all scrips be sent there. Updated in system.
Kenneth requested transportation to home.
Transportation discussed with CM director and CM to f/u with transport services re option and will update Kenneth.
Plan: home with services, once arranged.
--- NOTE | 2023-06-16 10:38 | W.PN.HOSP.TC ---
Addendum entered and electronically signed by Gerald Alvarez MD 06/16/23 14:30:
Per director of casework services, patient is now going home with home care.
Time of discharge 38 minutes
Original Note:
Today's Communication/Plan
-
Monitor vitals
See plan
Dispo efforts ongoing, see director of casework services note
pain control
Assessment / Plan
Assessment / Plan
GENERAL: No acute distress. A&Ox3.
HEENT: anicteric,pink conjuctivae
RESPIRATORY: Regular respirations, nonlabored, lungs clear.
CARDIOVASCULAR: Regular rate and rhythm, no murmurs
GI: Soft, nontender, normal BS
MUSCULOSKELETAL: no edema
PSYCH: Depressed mood and affect. anxious at times
NEUROLOGIC: Awake, alert and oriented,no motor deficits
Expressive Aphasia likely was 2/2 medication related and anxiety
-Consulted Neurology and Psych
-dc'ed ASA and plavix
MRI noted; no new cva
-a1c 5.6
-Monitor neuro-checks
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 MRA shows some
mild compression of the brainstem by vertebral artery however patient is assymptomatic. Per neurology patient can be discharged
Evaluated by psych and instructed to follow-up with them outpatient
Essential Hypertension - Goal for normotension
-Continue proprandol
added amlodipine
Peripheral Neuropathy
Fibromyalgia / Myofascial Pain Syndrome
-Continue gabapentin
-Hold Lyrica; multiple physicians along with pharmacy agreed that patient should not have gabapentin and Lyrica together.
Knee pain secondary to arthritis
Pain control
Anxiety / Depression / PTSD
-Continue Effexor and Topamax
DVT proph: SCDs
Code Status: Full Code
PT/OT now recommending home health however guardian wants nursing facility; patient wants to go home; director of casework services assisting with disposition. [employer] getting involved
Anticipated Discharge: Today
Subjective/Interval History
-
Date of Service: June 16, 2023
denies nausea
Objective Data
-
Vital Signs:
Vital Signs
Temp Pulse Resp BP Pulse Ox
98.5 F 72 16 129/60 95
06/16/23 07:45 06/16/23 07:45 06/16/23 07:45 06/16/23 08:00 06/16/23 07:45
I&O
06/15/23 06/16/23 06/17/23
06:59 06:59 06:59
Intake Total 1080 / 1080 1620 / 1620
Balance 1080 / 1080 1620 / 1620
[2023-06-16] MEDS: MOTRIN 200 MG PO (10:52)
[2023-06-16] MEDS: LMX 4 1 APPLIC TOPICAL (10:52)
[2023-06-16 12:50] VITALS: BP 129/60; PULSE 72
--- NOTE | 2023-06-16 12:58 | CM ---
Addendum entered by Neeru Hart 06/16/23 16:03:
Patient guardian spoke with CM and CM metal hanging supervisor and confirmed that he would meet patient at her home tonight when ambulance brings her. Ambulance crew to call guardian and confirm ability to meet them and then will come 6:30-7;00pm.
Addendum entered by Neeru Tanner 06/16/23 14:29:
Patient recently seen by PCP but asked to change at that time. Patient to make appointment with PCP for follow up.
Original Note:
CM called to [facility] and sent referral for pt/ot/sw services. Per liaison patient accepted for care. PCP to follow. Patient for transfer to home address via acute care ambulance; pending confirmation with guardian. Patient uses the [employer] transport
for transportation to physician offices. Patient to follow up with PCP.
Per Guardian conversation via phone today; He has no current medical questions for the physician. Patient medications will now be sent to [place] [facility] not [facility] and Ashley Anna from [facility] is to assist in getting them into blister
packs and back to patient via [employer]. Patient animals; at least dog and bird are believed to be in the custody of the [employer], Guardian is uncertain about the cat. Patient has in the past independently contacted the [employer] and gotten her
animals back previously. Patient Guardian requested that CM provide information to patient to contact the [employer] and Guardian will be notified when ambulance transportation is arranged and he will visit patient and confirm that she is comfortable this
evening. Patient does have food in the home per patient guardian. CM will review with CM manager call and notify physician with update. CM will review with patient. IMM reviewed with guardian and CM will send it to him via email. CM will also send the
prescription as requested to [facility] [employer] <[email or web address]>. Edgar from [facility] aware of plan per Guardian. CM will continue to follow for discharge planning needs.
Plan; home with suha Falcon in future, Shari RUTH and Edgar from [facility] to follow
--- NOTE | 2023-06-16 14:30 | W.DCSUMMARY ---
Discharge Summary
Discharge Data
Date of Admission: 06/10/23
Date of Discharge: 06/16/23
-
Pending Results: No
Hospital Course
73-year-old female with past medical history of essential hypertension, peripheral neuropathy, fibromyalgia/myofascial pain syndrome, anxiety/depression/PTSD came to the hospital with expressive aphasia. Initially patient was admitted to rule out
stroke. MRI and CAT scan both were negative for any acute CVA. Patient was initially started on aspirin and Plavix which was stopped after stroke was ruled out. Patient was seen by neurology throughout hospitalization. Patient did had mild
compression of brainstem by vertebral artery however she was asymptomatic. Patient symptoms were likely thought was secondary to medications and her anxiety. For her blood pressure she was started on amlodipine. Patient hospital course was
prolonged due her inability to take care of herself. Initially patient's guardian wanted patient to go to a rehab and patient continued to refuse rehab. Eventually decision was made with agreement of patient guardian to send her home with home
health. Her topiramate was decreased on this hospitalization. Once her symptoms were stable, she was then discharged home with instructions to follow-up with all her physicians outpatient.
Discharge Plan
-
Patient Disposition: Home with Home Care
Discharge Diagnosis/Procedures: Expressive aphasia likely secondary to medication and anxiety
Essential hypertension
Peripheral neuropathy
Fibromyalgia
Diet: As tolerated
Activity: As tolerated
Driving Restrictions: As prior to admission
Bathing Restrictions: None
Activity Restrictions/Additional Instructions:
Please follow-up with your primary care provider and psychiatry outpatient
Instructions: Medication Safety, Adult, Keeping Your Drug Information Current
Referrals:
NONE,* [Family Provider] - in less than 1 week
Prescriptions:
New
amlodipine 5 mg Tablet
5 mg PO DAILY Qty: 30 0RF
Continued
venlafaxine 75 mg capsule,extended release 24hr
75 mg PO QPM
propranolol 80 mg capsule,extended release 24hr
80 mg PO QPM
uuqolnmwpt-cliuzpy-qhdxtsen 50-325-40 mg capsule
2 cap PO Q4HPRN PRN (Reason: migraines)
gabapentin 300 mg capsule
600 mg PO HS
venlafaxine 150 mg tablet extended release 24hr
150 mg PO DAILY
Medical Mairjuana
2 - 3 puff inhalation DAILYPRN PRN (Reason: anxiety)
Changed
tramadol 50 mg tablet
50 mg PO BIDPRN PRN (Reason: severe pain) Qty: 0 0RF
topiramate 50 mg tablet
25 mg PO BID Qty: 0 0RF
Discontinued
pregabalin [Lyrica] 300 mg Capsule
300 mg PO DAILY
Rx Instructions:
must have brand name only!!
Discharge Orders:
Discharge Patient (As Directed); Ordered 06/16/23
Ordered By: Gerald Alvarez
Discharge Date and Time
Discharge Date/Time: 06/16/23 20:16
Print Language: VENEZUELAN
[2023-06-16 15:42] VITALS: BP 127/80
[2023-06-16] MEDS: EFFEXOR XR 75 MG PO (17:20)
[2023-06-16] MEDS: INDERAL LA 80 MG PO (17:20)
[2023-06-16] MEDS: LIPITOR 40 MG PO (17:20)
--- NOTE | 2023-06-16 17:47 | PTCARENOTE ---
Spoke to patient's POA over the phone who confirmed that he will be there when ambulance brings home the patient.
--- NOTE | 2023-06-16 19:02 | PTCARENOTE ---
Called patient's guardian to inform him that transport had arrived to take patient home.
== END 2023-06-16 20:16 | disposition home health service (06) ==
LOC: 4 WEST ACU 14:05
PROVIDERS: Physician Assistant Medical; Registered Nurse; ADMITTING PHYSICIAN Internal Medicine; CONSULT PHYSICIAN Psychiatry & Neurology Neurology; CONSULT PHYSICIAN Psychiatry & Neurology Psychiatry; EMERGENCY PHYSICIAN Student in an Organized Health Care Education/Training Program
DX: R47.01 Aphasia (principal); R41.82 Altered mental status, unspecified; I10 Essential (primary) hypertension; M79.7 Fibromyalgia; E86.0 Dehydration; F43.10 Post-traumatic stress disorder, unspecified; F32.A Depression, unspecified; G62.9 Polyneuropathy, unspecified; M17.9 Osteoarthritis of knee, unspecified; G93.5 Compression of brain; G89.29 Other chronic pain; M54.9 Dorsalgia, unspecified; M54.2 Cervicalgia; J30.1 Allergic rhinitis due to pollen; M19.90 Unspecified osteoarthritis, unspecified site; Z60.2 Problems related to living alone; Z91.030 Bee allergy status; Z88.2 Allergy status to sulfonamides
CPT/HCPCS: 70450; 70544; 70548; 70551; 80048; 80053; 80061; 82962; 83036; 83735; 84443; 85025; 86803; 92507; 92523; 92610; 97116; 97129; 97163; 97167; 97530; 99285; A9585; G0378

== ENCOUNTER → 2023-07-23 08:46 | Outpatient (REF) | payer MEDICARE, SELFPAY | LOC: RAD 08:46 | PROVIDERS: ATTENDING PHYSICIAN Family Medicine | DX: R09.89 Other specified symptoms and signs involving the circulatory and respiratory systems (principal); R23.0 Cyanosis | CPT/HCPCS: 93922; 93925 ==